=== PATIENT | female | born 1995 | race Caucasian/White ===

== ENCOUNTER → 2019-02-01 | Outpatient (REF) | payer OTHER | LOC: M LAB LCGH 12:10 | PROVIDERS: ATTEND Obstetrics & Gynecology | DX: Z12.4 Encounter for screening for malignant neoplasm of cervix (principal) ==

== ENCOUNTER → 2020-08-22 | Outpatient (REF) | payer BC, OTHER | LOC: M LAB REF 19:04 | PROVIDERS: ATTEND Dermatology | DX: D23.71 Other benign neoplasm of skin of right lower limb, including hip (principal) ==